=== PATIENT | female | born 1995 | race Caucasian/White ===

== ENCOUNTER → 2019-01-09 | Outpatient (REF) | payer SELFPAY | LOC: M LAB REF 12:50 | PROVIDERS: ATTEND Advanced Practice Midwife | DX: R30.0 Dysuria (principal) ==

== ENCOUNTER → 2019-05-07 | Outpatient (REF) | payer SELFPAY | LOC: M SFHCCLAY 11:11 | PROVIDERS: ATTEND Nurse Practitioner Family | DX: R30.0 Dysuria (principal) ==